=== PATIENT | female | born 1985 | race Caucasian/White ===

== ENCOUNTER 2023-04-30 11:23 | Inpatient (IN) | payer OTHER ==
[2023-04-30 11:58] VITALS: BMI 23.8
[2023-04-30] MEDS ORDERED: MAG HYDROX/AL HYDROX/SIMETH 30 ML UNIT-DOSE CUP PO PRN (12:26)
[2023-04-30] MEDS ORDERED: DICYCLOMINE HCL 10 MG CAPSULE PO PRN (12:26)
[2023-04-30] MEDS ORDERED: POLYETHYLENE GLYCOL (HEALTHYLAX) 3350 17 GM PACKET PO PRN (12:26)
[2023-04-30] MEDS ORDERED: METHOCARBAMOL 500 MG TABLET PO PRN (12:26)
[2023-04-30] MEDS ORDERED: NICOTINE POLACRILEX 2 MG GUM BUC PRN (12:26)
[2023-04-30] MEDS ORDERED: NICOTINE 10 MG CARTRIDGE (INHALER) IH PRN (12:26)
[2023-04-30] MEDS ORDERED: BISMUTH SUBSALICYLATE 524 MG/30 ML PO PRN (12:26)
[2023-04-30] MEDS ORDERED: P-EPHED 60MG/TRIPROLIDI 2.5MG TABLET PO PRN (12:26)
[2023-04-30] MEDS ORDERED: MAGNESIUM HYDROX 2400MG/30ML ORAL SUSPENSION 30 ML CUP PO PRN (12:26)
[2023-04-30] MEDS ORDERED: guaiFENesin 600 MG TABLET.ER (FP) PO PRN (12:26)
[2023-04-30] MEDS ORDERED: IBUPROFEN 400 MG TABLET (FP) PO PRN (12:26)
[2023-04-30] MEDS ORDERED: BENZOCAINE/MENTHOL (CHLORASEPTIC ) LOZENGE MM PRN (12:26)
[2023-04-30] MEDS ORDERED: ONDANSETRON *ODT* 4 MG TABLET SL PRN (12:26)
[2023-04-30] MEDS ORDERED: BENZONATATE 200 MG CAPSULE PO PRN (12:26)
[2023-04-30] MEDS ORDERED: ACETAMINOPHEN 325 MG TABLET (FP) PO PRN (12:26)
[2023-04-30] MEDS ORDERED: chlordiazePOXIDE HCL 25 MG CAPSULE PO PRN (12:28)
[2023-04-30] MEDS ORDERED: ONDANSETRON *ODT* 4 MG TABLET ONE (13:34)
[2023-04-30] MEDS ORDERED: hydrOXYzine PAMOATE 25 MG CAPSULE (FP) PO ONE (13:34)
[2023-04-30] MEDS: hydrOXYzine PAMOATE 25 MG CAPSULE (FP) PO PRN (13:36)
[2023-04-30] MEDS: chlordiazePOXIDE HCL 25 MG CAPSULE PO SCH ×2 (17:23→21:58)
[2023-04-30] MEDS: THIAMINE HCL 100 MG TABLET (FP) PO SCH (21:58)
[2023-04-30] MEDS: MELATONIN 5 MG TABLETS PO SCH (21:58)
[2023-05-01] MEDS: chlordiazePOXIDE HCL 25 MG CAPSULE PO SCH ×4 (05:26→22:27)
[2023-05-01] MEDS: PRENATAL VITAMINS W/ FOLIC ACID TABLET (FP) PO SCH (10:07)
[2023-05-01 12:42] LABS: POTASSIUM 3.9 mmol/L (3.5-5.1)
[2023-05-01 12:45] LABS: HEMATOCRIT 35.3 % (32.4-45.2); HEMOGLOBIN 11.9 GM/dL (10.7-15.3); MCH 30.7 pg (25.7-33.7); MCHC 33.7 g/dl (32.0-36.0); MEAN CELL VOLUME 91.2 fl (80-96); MEAN PLT VOLUME 7.4 fl (7.5-11.1); PLATELET COUNT 165 10^3/uL (134-434); RBC 3.87 M/mm3 (3.60-5.2); WHITE BLOOD COUNT 4.1 K/mm3 (4.0-10.0)
[2023-05-01 12:47] LABS: ALBUMIN 3.8 g/dl (3.4-5.0); BLOOD UREA NITROGEN 4.1 mg/dL (7-18)
[2023-05-01 12:50] LABS: CREATININE 0.8 mg/dL (0.55-1.3)
[2023-05-01 12:51] LABS: BILIRUBIN,TOTAL 0.8 mg/dL (0.2-1); TOT PROT 7.8 g/dl (6.4-8.2)
[2023-05-01 13:41] LABS: HIV INTERPRETATION NEGATIVE (NEGATIVE)
[2023-05-01] MEDS: hydrOXYzine PAMOATE 25 MG CAPSULE (FP) PO PRN (17:01)
[2023-05-01] MEDS: MELATONIN 5 MG TABLETS PO SCH (22:27)
[2023-05-01] MEDS: THIAMINE HCL 100 MG TABLET (FP) PO SCH (22:27)
[2023-05-02] MEDS: chlordiazePOXIDE HCL 25 MG CAPSULE PO SCH ×4 (05:50→22:27)
[2023-05-02] MEDS: PRENATAL VITAMINS W/ FOLIC ACID TABLET (FP) PO SCH (10:41)
[2023-05-02] MEDS: LOPERAMIDE HCL 2 MG CAPSULE PO PRN (13:54)
[2023-05-02] MEDS: hydrOXYzine PAMOATE 25 MG CAPSULE (FP) PO PRN (17:08)
[2023-05-02] MEDS: IBUPROFEN 600 MG TABLET (FP) PO PRN (17:08)
[2023-05-02] MEDS ORDERED: cloNIDine HCL 0.1 MG TABLET PO PRN (18:00)
[2023-05-02] MEDS: MELATONIN 5 MG TABLETS PO SCH (22:27)
[2023-05-02] MEDS: THIAMINE HCL 100 MG TABLET (FP) PO SCH (22:27)
[2023-05-03] MEDS ORDERED: chlordiazePOXIDE HCL 10 MG CAPSULE PO PRN
[2023-05-03] MEDS: chlordiazePOXIDE HCL 10 MG CAPSULE PO SCH ×2 (05:42→10:45)
[2023-05-03] MEDS: IBUPROFEN 600 MG TABLET (FP) PO PRN (05:44)
[2023-05-03] MEDS: LOPERAMIDE HCL 2 MG CAPSULE PO PRN (07:46)
[2023-05-03 09:15] VITALS: BP 158/94; PULSE 63; RESP 18; TEMP 97.1
[2023-05-03] MEDS: PRENATAL VITAMINS W/ FOLIC ACID TABLET (FP) PO SCH (10:44)
[2023-05-03] MEDS ORDERED: MELATONIN 5 MG TABLETS PO SCH (22:00)
[2023-05-04] MEDS ORDERED: chlordiazePOXIDE HCL 10 MG CAPSULE PO SCH (05:00)
[2023-05-05] MEDS ORDERED: chlordiazePOXIDE HCL 10 MG CAPSULE PO ONE (05:00)
== END 2023-05-03 10:46 | disposition home or self-care (01) | DRG 775 ==
LOC: YASAS 11:23 → Y6N 13:18
PROVIDERS: ADMIT Allergy & Immunology; ATTEND Surgery
PROC: HZ2ZZZZ Detoxification Services for Substance Abuse Treatment (ICD-10-PCS; principal; 2023-04-30)
DX: F10.230 Alcohol dependence with withdrawal, uncomplicated (principal); F17.213 Nicotine dependence, cigarettes, with withdrawal; F10.282 Alcohol dependence with alcohol-induced sleep disorder; M41.9 Scoliosis, unspecified
CPT/HCPCS: 36415; 80053; 81025; 83036; 85027; 86780; 87389; 87635; Q0162